=== PATIENT | male | born 1975 | race African-American/Black ===

== ENCOUNTER 2018-08-13 11:05 | Emergency (ER) | payer OTHER ==
[~2018-08-13] VITALS: Ht 177.8 cm; Wt 81.6 kg
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
--- NOTE | 2018-08-13 12:07 | Diagnostic Imaging Report ---
Indication: Trauma, pain Technique: 3 views of the left ankle Comparison: none Findings: No acute fractures. No dislocations. Joint spaces are preserved. Impression: Negative
--- NOTE | 2018-08-13 12:28 | NUR ---
ED Nurse Note:pt. came with left ankle injury and pain, pain meds were provided
[2018-08-13] MEDS ORDERED: TYLENOL325 MG ORAL (12:45)
[2018-08-13] MEDS ORDERED: IBUPROFEN600 MG ORAL (12:45)
[2018-08-13 12:58] VITALS: BP 130/68
--- NOTE | 2018-08-13 12:58 | NUR ---
Note yevgeniyone in EDM - 08/13/18 at 1300 by [facility] DISCHARGE NOTE:angelito wrap placed on right knee Patient is cleared to be discharged per ERMD, pt is aox4, on room air, with stable vital signs. pt was given dc and prescription instructions, pt was able to verbalize understanding, pt is able to ambulate with steady gait. pt took all belongings.
--- NOTE | 2018-08-13 12:59 | NUR ---
ED Nurse Note: PT. AAOX4. AMBULATORY. LEFT WITH ALL HIS BELONGINGS PT. EDUCATION DONE REGARDING D/C PAPERS AND PRESCRIPTIONS. VSS. ID ARMBAND REMOVED
== END 2018-08-13 13:00 | disposition home or self-care (01) ==
LOC: EMR 11:50
DX: S97.82XA Crushing injury of left foot, initial encounter (principal); S90.512A Abrasion, left ankle, initial encounter; W23.0XXA Caught, crushed, jammed, or pinched between moving objects, initial encounter; Y92.89 Other specified places as the place of occurrence of the external cause
CPT/HCPCS: 99283